=== PATIENT | male | born 1985 | race Caucasian/White ===

== ENCOUNTER 2016-11-15 18:57 | Emergency (ER) | payer SELFPAY ==
--- NOTE | 2016-11-15 19:44 | EDPHY ---
H & P Time Seen by Provider: 11/15/16 19:36 HPI/ROS: CHIEF COMPLAINT: Right leg swelling HISTORY OF PRESENT ILLNESS: Patient presents with 2 weeks of pain from his knee down to his ankle with leg swelling in the calf for the past 10 days. Much worse over the past 24 hours. Not associated with fever or chills or recent trauma. Pain radiates down into the foot and is worse with palpation or movement. Not associated with chest pain or shortness of breath. No skin discoloration. REVIEW OF SYSTEMS: Eye: no change in vision ENT: no sore throat Cardiac: no chest pain or syncope Pulmonary: no cough or SOB Abdomen: no vomiting, diarrhea, abdominal pain Musculoskeletal: no back pain Skin: no rash Neuro: no headache Constitutional: no fever : no urinary symptoms A comprehensive 10 point review of systems is otherwise negative aside from elements mentioned in the history of present illness. PAST MEDICAL HISTORY: Negative Social history: Tobacco smoker, no recent travel or immobilization. Family history: Negative for venous thromboembolism. General Appearance: Alert and conversant, cooperative. Eyes: No scleral icterus. ENT, Mouth: Normal mucous membranes. Respiratory: Normal respiratory effort, breath sounds equal, lungs are clear to auscultation. Cardiovascular: Regular rate and rhythm. Gastrointestinal: Abdomen is soft and non tender. Neurological: Alert and oriented x3. Normally conversant. Face symmetric, normal movement and sensation in all extremities. Skin: Slight erythema on skin of the right posterior calf but it is not warm to the touch and he does not have blisters bull eye eschar or lymphangitis. Musculoskeletal: Right calf is swollen but compartments are soft. He does have a normal dorsalis pedis pulse. I can range his knee and his ankle without significant pain. His knee range of motion is limited to 90 because he gets tight in the area where he has pain. Psychiatric: Not agitated. Emergency Department course/MDM: Ultrasound right lower extremity ordered. 2104: Ultrasound shows either hematoma or Blackburn cyst but no DVT per Nanci. Results discussed with the patient at 9:10 p.m.. Smoking Status: Never smoked Constitutional: Initial Vital Signs Temperature (C) 37.6 C 11/15/16 19:06 Heart Rate 91 11/15/16 19:06 Respiratory Rate 16 11/15/16 19:06 Blood Pressure 151/87 H 11/15/16 19:06 O2 Sat (%) 97 11/15/16 19:06 O2 Delivery Mode Room Air Allergies/Adverse Reactions: No Known Allergies Allergy (Verified 11/15/16 19:12) Home Medications: Medication Instructions Recorded NK [No Known Home Meds] 11/15/16 Medical Decision Making - Diagnostics Imaging Results: Imaging Impressions Extremity Venous Study 11/15/16 19:42 Impression: No deep venous thrombosis right leg. 2 complex fluid collections within the retropopliteal fossa and proximal calf are most likely Blackburn's cysts. Results called to Dr. Carter at 9:00 PM Differential Diagnosis: Differential considered including but not limited to fracture of the tib-fib, DVT, arterial occlusion, compartment syndrome, cellulitis. Departure - Departure Disposition: Home, Routine, Self-Care Clinical Impression: Blackburn cyst Qualifiers: Laterality: right Qualified Code(s): M71.21 - Synovial cyst of popliteal space [Blackburn], right knee Condition: Good Instructions: Bakers Cyst (ED) Additional Instructions: Call tomorrow for follow-up orthopedic appointment next week. Referrals: Martir Thomas MD [Medical Doctor] - As per Instructions
[2016-11-15 21:27] VITALS: BP 138/92; PULSE 90; RESP 18; TEMP 98.2; O2SAT 96
== END 2016-11-15 21:27 | disposition home or self-care (01) ==
DX: M71.21 Synovial cyst of popliteal space [Baker], right knee (principal); F17.200 Nicotine dependence, unspecified, uncomplicated